=== PATIENT | male | born 1980 | race Caucasian/White ===

== ENCOUNTER 2019-06-01 15:58 | Outpatient (CLI) ==
[2019-06-01] MEDS ORDERED: PANT40TA5 PO (16:22)
[2019-06-01] MEDS ORDERED: MOME13HF2 INH (16:22)
[2019-06-01] MEDS ORDERED: VENL75TA PO (16:22)
== END 2019-06-01 23:59 | disposition home or self-care (01) ==
LOC: STAR 15:58
PROVIDERS: ATTEND Orthopaedic Surgery
DX: Z02.9 Encounter for administrative examinations, unspecified (principal)

== ENCOUNTER 2019-06-07 05:15 | Day surgery (SDC) | payer BC ==
[~2019-06-07] VITALS: Ht 170.2 cm; Wt 87.2 kg
[~2019-06-07 05:15] MED LIST: MOME13HF2 INH; PANT40TA5 PO; VENL75TA PO
[2019-06-07] MEDS ORDERED: LACTATED RINGERS 1,000 ML IV SCH (05:56)
[2019-06-07 06:00] VITALS: BP 120/87
[2019-06-07] MEDS ORDERED: LIDOCAINE-MPF 1%, 2ML INFIL ONE (06:00)
[2019-06-07] MEDS ORDERED: LIDOCAINE-MPF 1%, 2ML ONE (06:04)
[2019-06-07] MEDS ORDERED: morphine SULFATE/PF 1 MG/ML, 10ML ONE (06:31)
[2019-06-07] MEDS ORDERED: ROPIvacaine/PF 0.5%, 30 ML ONE (06:31)
[2019-06-07] MEDS ORDERED: LIDOCAINE 1%-EPI 1:100K, 20ML ONE (06:32)
[2019-06-07] MEDS ORDERED: FENTANYL PF 250 MCG/5ML ONE ×2 (06:55)
[2019-06-07] MEDS ORDERED: MIDAZOLAM 1 MG/ML, 2ML ONE ×3 (06:55→07:00)
[2019-06-07] MEDS ORDERED: PROPOFOL 10 MG/ML, 20ML ONE ×2 (06:56→07:40)
[2019-06-07] MEDS ORDERED: KETOROLAC 30 MG/1 ML ONE (06:56)
[2019-06-07] MEDS ORDERED: CEFAZOLIN 1,000 MG ONE (06:56)
[2019-06-07] MEDS ORDERED: ONDANSETRON 2MG/ML, 2ML ONE (06:56)
[2019-06-07] MEDS ORDERED: DEXAMETHASONE 4 MG/ML, 1ML ONE (06:56)
[2019-06-07] MEDS ORDERED: hydrALAzine 20 MG/ML, 1ML IV PRN (07:30)
[2019-06-07] MEDS ORDERED: HYDROmorphone 2 MG/ML, 1ML IVPush PRN (07:30)
[2019-06-07] MEDS ORDERED: ALBUTEROL/IPRATROPIUM 2.5MG/0.5MG, 3 ML NPPB PRN (07:30)
[2019-06-07] MEDS ORDERED: MEPERIDINE/PF 25MG/ML,1ML IVPush PRN (07:30)
[2019-06-07] MEDS ORDERED: PROMETHAZINE 25 MG/ML, 1ML IV PRN (07:30)
[2019-06-07] MEDS ORDERED: ACETAMINOPHEN 325 MG TABLET PO PRN (07:30)
[2019-06-07] MEDS ORDERED: OXYcodone 5 MG/5 ML ORAL.SOL UDC PO PRN (07:30)
[2019-06-07] MEDS ORDERED: LIDOCAINE-MPF 2% ,5ML ONE (07:49)
[2019-06-07] MEDS ORDERED: ACETAMINOPHEN 650 MG/20.3 ML UDC ONE (08:05)
[2019-06-07] MEDS ORDERED: OXYcodone 5 MG/5 ML ORAL.SOL UDC ONE (08:05)
[2019-06-07] MEDS ORDERED: FENTANYL PF 100 MCG/2ML ONE (08:05)
[2019-06-07] MEDS: FENTANYL PF 100 MCG/2ML IV PRN ×2 (08:06→08:12)
== END 2019-06-07 09:35 | disposition home or self-care (01) ==
LOC: OR 05:15
PROVIDERS: ATTEND Orthopaedic Surgery
DX: S83.231A Complex tear of medial meniscus, current injury, right knee, initial encounter (principal); M94.261 Chondromalacia, right knee; J45.909 Unspecified asthma, uncomplicated; K21.9 Gastro-esophageal reflux disease without esophagitis; Z87.891 Personal history of nicotine dependence; Z82.3 Family history of stroke; W17.2XXA Fall into hole, initial encounter; Y93.89 Activity, other specified; Y92.89 Other specified places as the place of occurrence of the external cause; Y99.8 Other external cause status
CPT/HCPCS: 29881; J0690; J1100; J1885; J2250; J2274; J2405; J2704; J2795; J3010; J3490